=== PATIENT | female | born 2000 | race Caucasian/White ===

== ENCOUNTER 2023-09-17 02:32 | Emergency (ER) | payer MEDICAID ==
[~2023-09-17] VITALS: Ht 157.5 cm; Wt 50.0 kg
[2023-09-17 02:41] VITALS: O2SAT 100
[2023-09-17] MEDS: MAGNESIUM/ALUMINUM HYDROXIDE/SIMETHICONE 30ML UDC PO STA (03:18)
[2023-09-17] MEDS: SODIUM CHLORIDE 0.9% 1,000 ML IV ONE ×2 (03:18→05:16)
[2023-09-17] MEDS: ONDANSETRON HCL 4MG/2ML INJ IV STA (03:18)
[2023-09-17 03:22] LABS: BASOPHILS % 0.2 % (0.0-2.0); EOSINOPHILS % 0.4 % (0.0-5.0); HEMATOCRIT. 38.7 % (36.0-48.0); HEMOGLOBIN. 13.2 g/dL (12.0-16.0); LYMPHOCYTES % 7.1 % (20.0-50.0); MEAN CORPUSCULAR HEMOGLOBIN 30.8 pg (28.0-32.0); MEAN CORPUSCULAR HGB CONC 34.1 g/dL (31.0-37.0); MEAN CORPUSCULAR VOLUME 90.1 fL (81.0-99.0); MEAN PLATELET VOLUME 8.3 fl (7.4-10.4); MONOCYTES % 6.7 % (2.0-8.0); NEUTROPHILS % 85.6 % (40.0-76.0); PLATELET 179 x1000/uL (130-400); RED BLOOD CELL COUNT 4.29 mill/uL (4.2-5.4); RED CELL DISTRIBUTION WIDTH 13.3 % (11.6-14.6); WHITE BLOOD COUNT 10.1 x1000/uL (4.5-11.0)
[2023-09-17] MEDS: ACETAMINOPHEN 1000MG/100ML 100 ML IV ONE (03:29)
[2023-09-17 03:30] LABS: CHLORIDE 108 mEq/L (98-107); POTASSIUM 3.4 mEq/L (3.5-5.1); SODIUM 139 mEq/L (136-145)
[2023-09-17 03:31] LABS: CARBON DIOXIDE 24 mEq/L (21-32); HCG SCREEN NEGATIVE
[2023-09-17 03:33] LABS: PROTHROMBIN TIME 11.4 sec (9.6-11.0)
[2023-09-17 03:36] LABS: CREATININE 0.7 mg/dL (0.6-1.0); GLUCOSE 104 mg/dL (70-105)
[2023-09-17 03:38] LABS: ALANINE AMINOTRANSFERASE 35 IU/L (10-49); ALBUMIN 4.5 g/dL (3.2-4.8); ASPARTATE AMINOTRANSFERASE 57 IU/L (<34)
[2023-09-17 03:39] LABS: BILIRUBIN DIRECT 0.3 mg/dL (<=3.0); BILIRUBIN TOTAL 0.7 mg/dL (0.1-1.0); LACTIC ACID 2.4 mmol/L (0.4-2.0)
[2023-09-17 03:50] LABS: UREA NITROGEN BLOOD < 5 mg/dL (9-23)
[2023-09-17] MEDS: METOCLOPRAMIDE HCL 10MG/2ML VIAL IV ONE (05:16)
[2023-09-17] MEDS ORDERED: HALOPERIDOL LACTATE 5MG/ML VIAL IM NR (05:30)
[2023-09-17 05:33] LABS: CLARITY URINE CLEAR (CLEAR); COLOR URINE YELLOW (YELLOW); GLUCOSE URINE NEGATIVE (NEGATIVE); KETONES URINE NEGATIVE (NEGATIVE); LEUKOCYTE ESTERASE URINE NEGATIVE (NEGATIVE); NITRITE URINE NEGATIVE (NEGATIVE); OCCULT BLOOD URINE 2+ (NEGATIVE); PH URINE 7.5 (4.5-8.0); PROTEIN URINE NEGATIVE (NEGATIVE); SPECIFIC GRAVITY URINE 1.014 (1.005-1.030)
[2023-09-17 05:40] LABS: *AMPHETAMINES SCREEN URINE NEGATIVE (NEGATIVE); *BARBITURATES SCREEN URINE NEGATIVE (NEGATIVE); *BENZODIAZEPINES SCREEN URINE NEGATIVE (NEGATIVE); *COCAINE SCREEN URINE NEGATIVE (NEGATIVE); CANNABINOID URINE SCREEN PRESUMPTIVE POSITIVE (NEGATIVE); ECSTASY MDMA SCREEN URINE NEGATIVE (NEGATIVE); METHADONE URINE SCREEN NEGATIVE (NEGATIVE); OPIATES URINE SCREEN NEGATIVE (NEGATIVE); PHENCYCLIDINE URINE SCREEN NEGATIVE (NEGATIVE)
[2023-09-17 05:43] LABS: BACTERIA URINE TRACE; MUCUS URINE 1+ /lpf (< = 2+); SQUAMOUS EPITHELIAL CELL URINE 1+ /lpf (RARE/1+); WBC URINE 0-2 /hpf (0-2)
[2023-09-17] MEDS ORDERED: METO-293 MT (05:59)
[2023-09-17 07:51] VITALS: BP 125/82; PULSE 79; RESP 18; TEMP 98
== END 2023-09-17 07:54 | disposition home or self-care (01) ==
LOC: ER 02:32
DX: R11.2 Nausea with vomiting, unspecified (principal); E87.20 Acidosis, unspecified; Z00.00 Encounter for general adult medical examination without abnormal findings
CPT/HCPCS: 80076; 80305; 80048; 81003; 80320; 84703; 83605; 83690; 85025; 85610; 36415; 76705; 96365; 96366; 96375; 99285; J2765; J2405; J7030; G0480; J0131